=== PATIENT | female | born 1960 | race Caucasian/White ===

== ENCOUNTER → 2019-06-03 | Day surgery (SDC) | payer OTHER ==
[~2019-06-03] VITALS: Ht 160 cm; Wt 97.5 kg
[~2019-06-03] MED LIST: ALPRAZOLAM0.5 M3 PO; ATORVASTATIN CA10 M1 PO; CLARITIN10 MG PO; EPI EZ PEN1 MG/ML IM; LISINOPRIL40 MG PO; OMEPRAZOLE40 MG PO; TRAMADOL HCL50 MG PO
[2019-06-03 11:31] VITALS: BP 165/94
[2019-06-03 14:03] VITALS: BP 120/79
[2019-06-03 14:15] VITALS: BP 129/64
[2019-06-03 14:30] VITALS: BP 145/82
== END | disposition home or self-care (01) ==
LOC: SDC 05-22 00:25
DX: L72.11 Pilar cyst (principal); K63.5 Polyp of colon; Z79.899 Other long term (current) drug therapy; Z98.890 Other specified postprocedural states; Z88.0 Allergy status to penicillin; Z86.010 Personal history of colon polyps; Z83.3 Family history of diabetes mellitus; Z80.8 Family history of malignant neoplasm of other organs or systems

== ENCOUNTER → 2020-05-18 | Outpatient (CLI) | payer OTHER | END | disposition home or self-care (01) | LOC: COVID19 15:06 | PROVIDERS: ATTEND Preventive Medicine Occupational Medicine | DX: Z20.828 Contact with and (suspected) exposure to other viral communicable diseases (principal) ==